=== PATIENT | male | born 1940 | race Caucasian/White ===

== ENCOUNTER → 2016-09-27 | Outpatient (CLI) | payer BC ==
[~2016-09-27] MED LIST: ATOR10TA88 PO; B-COCAP2 PO; CALC500C70 PO; CITA20TA4 PO; CMD5 PO; LOSA50TA6 PO; METO50TA17 PO; OMEP40CA PO; TRAM-10 PO
[2016-09-27 14:08] LABS: ALT/SGPT 23 U/L (12-78); AST/SGOT 16 U/L (15-37); BLOOD UREA NITROGEN 15 mg/dl (7-18); BUN/CREATININE RATIO 12.4 (10-20); CALCIUM 8.6 mg/dl (8.5-10.1); CARBON DIOXIDE 28 mmol/L (21-32); CHLORIDE 107 mmol/L (98-107); GLUCOSE 107 mg/dl (70-99); POTASSIUM 4.5 mmol/L (3.5-5.1); SODIUM 141 mmol/L (136-145)
[2016-09-27 14:13] LABS: CHOLESTEROL 124 mg/dl (0-200); CHOLESTEROL/HDL RATIO 3.6; HDL CHOLESTEROL 34 mg/dl; LDL CHOLESTEROL CALCULATED 71 mg/dl; PROSTATE SPECIFIC ANTIGEN 0.155 ng/ml (0.000-4.000); TRIGLYCERIDES 97 mg/dl (0-150); VERY LOW DENSITY LIPOPROT CALC 19 mg/dl
== END | disposition home or self-care (01) ==
LOC: C.LABMFLN 10:15
PROVIDERS: ATTEND Family Medicine
DX: E78.5 Hyperlipidemia, unspecified (principal); I48.91 Unspecified atrial fibrillation; R97.20 Elevated prostate specific antigen [PSA]; I25.10 Atherosclerotic heart disease of native coronary artery without angina pectoris; C61 Malignant neoplasm of prostate

== ENCOUNTER → 2016-11-30 | Outpatient (CLI) | payer BC ==
[~2016-11-30] MED LIST changes: +ATOR10TA82 PO; -ATOR10TA88 PO; +[UNRECOGNIZED DRUG - CODE] PO
== END | disposition home or self-care (01) ==
LOC: C.PATHSPEC 16:41
PROVIDERS: ATTEND Dermatology
DX: D04.22 Carcinoma in situ of skin of left ear and external auricular canal (principal)

== ENCOUNTER → 2016-12-21 | Day surgery (SDC) | payer BC ==
[2016-12-17 10:45] VITALS: Ht 182.9 cm; Wt 104.5 kg
[~2016-12-21] VITALS: Ht 182.9 cm; Wt 104.5 kg
[~2016-12-21] MED LIST changes: +ACETAMINOPHEN 325 MG TAB PO PRN; +ATROPINE SULFATE 0.1 MG/ML 5ML SYR IV PRN; +CEFAZOLIN 2000 MG/60 ML D5W IV SCH; +EpHEDrine SULFATE INJ 50 MG/ML AMP IV PRN; +FENTANYL CITRATE INJ 50 MCG/1 ML 2 ML VIAL IV PRN; +FENTANYL CITRATE INJ 50 MCG/1 ML 2 ML VIAL ONE; +LACTATED RINGER'S 1000ML 1,000 ML IV SCH; +LIDOCAINE/EPINEPHRINE 1% INJ 50 ML VIAL ONE; +METOCLOPRAMIDE HCL INJ 5 MG/ML 2 ML VIAL IV PRN; +MIDAZOLAM HCL 1 MG/ML 2ML VIAL ONE; +ONDANSETRON INJ 2 MG/ML 2 ML VIAL IV PRN; +OXYCODONE/ACETAMINOPHEN 5-325 TAB PO PRN; +POVIDONE-IODINE OP SOLN 30 ML BTL ONE; +PROPOFOL IV EMULSION 10 MG/ML 20 ML VIAL IV ONE; +SODIUM CHLORIDE 0.9% 1000ML 1,000 ML IV SCH
--- NOTE | 2016-12-21 11:19 | History & Physical Bridge - [place] ---
H&P Re-Evaluation Bridge Note: I have examined the patient, reviewed the History & Physical and in the interval since the performance of the History & Physical I have noted the following changes of clinical significance: INR 1.1. Has appt with Dr. Rivers later today to follow up on Efudex treatment to nose and left cheek
--- NOTE | 2016-12-21 11:39 | Discharge Instructions ---
Discharge Instructions Date of Service Dec 21, 2016. 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 Discharge Discharge Diagnosis / Problem: squamous cell carcinoma of face Discharge Goals Goal(s): Decrease discomfort Activity Recommendations Activity Limitations: per Instructions/Follow-up section ACTIVITY RECOMMENDATIONS: __Normal activities _x_No bending, lifting or straining __No driving __Driving allowed when you are off pain medications _x_Walking permitted __You should have help at home for ___ days DRESSINGS: __No dressings required _x_Keep dressings dry/in place until first office visit __Remove dressings ___ and leave dressings off __Apply ice ___ days __Remove dressings and reapply garment __Apply antibiotic ointment (Bacitracin, Neosporin, etc) to wounds 3-4 times/ day for 10 days BATHING: _x_Keep dressings dry _x_Sponge bathing permitted __Showering permitted _x_No swimming, hot tubs or soaking in a tub MEDICATIONS: Resume previous medications unless instructed otherwise by your surgeon. _x_Do not use aspirin, Motrin, Advil or Ibuprofen as these may promote bleeding. Please use Tylenol. _x_Prescription(s) provided: pain medication and antibiotics provided at your last office visit. YOU MAY RESUME COUMADIN TONIGHT OTHER INSTRUCTIONS: __Record drain output 2-3 times per day SPECIAL CARE INSTRUCTIONS: * It is normal to have a mild fever after surgery. If your temperature is higher than 101.5 degrees F, please call the office at [phone]. * Constipation is a typical side effect of pain medication. An over-the- counter stool softener will help relieve this. * Leaking around surgical drains may occur and should not cause concern. Sometimes these drains become clogged. If this happens, remove the bulb and milk the clot out of the tube, then replace the bulb. * Drainage from wounds after liposuction is normal and should be expected. Garments will become soiled. You should protect furniture and bedding. This drainage should mostly subside within 2-3 days. Leave garments in place unless instructed to remove them. * If you have unusual drainage from a wound or are concerned you have an infection or have any questions or concerns, please call the office at [phone]. FOLLOW UP VISIT: If not already scheduled, please call the office, , when you return home after surgery to schedule an appointment to be seen in _2_ days. . Current Hospital Diet Patient's current hospital diet: Discharge Diet Recommended Diet: Regular Diet Pending Studies Studies pending at discharge: yes List of pending studies: pathology Laboratory Results Lipid Panel Test 09/27/16 10:00 Range/Units Triglycerides Level 97 0-150 mg/dl Cholesterol Level 124 0-200 mg/dl HDL Cholesterol 34 mg/dl Cholesterol/HDL Ratio 3.6 LDL Cholesterol, Calculated 71 mg/dl Medical Emergencies . Who to Call and When: Medical Emergencies: If at any time you feel your situation is an emergency, please call 911 immediately. . Non-Emergent Contact Non-Emergency issues call your: Primary Care Provider, Surgeon . "Provider Documentation" section prepared by Karol Bowie. . VTE Core Measure Inpt VTE Proph given/why not?: SCD's [place] Drug Monitoring Program Search Results: no issues identified
--- NOTE | 2016-12-21 13:41 | [facility] Post Operative Brief Note ---
Immediate Operative Summary Operative Date Dec 21, 2016. Pre-Operative Diagnosis Squamous Cell Carcinoma of Skin of Face Post-Operative Diagnosis Same Procedure(s) Performed Left Upper Ear At [facility] Squamous Cell Carcinoma Excision With Frozen Section; Primary Versus Flap Versus Full Thickness Graft Closure Surgeon Dr Ray [employer] Surgeon(s) Sandra Bowie PA-C Estimated Blood Loss 20ml Findings residual SCC left ear, 9'oclock positive on frozen, all final margins negative Specimens A: Left Ear Squamous Cell (Suture 12 O'Clock) B: Left upper ear re-excision - Anesthesia local with sedation Complication(s) None Disposition Recovery Room / PACU
[2016-12-21 13:46] VITALS: TEMP 36.8
[2016-12-21 14:07] VITALS: BP 130/92; PULSE 67; O2SAT 97
--- NOTE | 2016-12-21 14:12 | Anesthesia Progress Nt - [facility] ---
Anesthesia Post Op Note Date & Time Dec 21, 2016 at 14:12 Vital Signs Pain Intensity: 0 Vital Signs Past 12 Hours Date Time Temp Pulse Resp B/P (MAP) Pulse Ox O2 Delivery O2 Flow Rate FiO2 12/21/16 14:07 67 16 130/92 (105) 97 Room Air 12/21/16 13:46 36.8 69 14 128/90 (103) 95 Room Air 12/21/16 10:48 36.6 67 16 131/94 (106) 96 Notes Mental Status: alert / awake / arousable, participated in evaluation Pt Amnestic to Procedure: Yes Nausea / Vomiting: adequately controlled Pain: adequately controlled Airway Patency, RR, SpO2: stable & adequate BP & HR: stable & adequate Hydration State: stable & adequate Anesthetic Complications: no major complications apparent
--- NOTE | 2016-12-23 21:22 | OPERATIVE REPORT ---
DATE OF OPERATION: 12/21/2016 PREOPERATIVE DIAGNOSIS: Left ear atypical squamous proliferation. POSTOPERATIVE DIAGNOSIS: Left ear squamous cell carcinoma. PROCEDURE: Excision squamous cell carcinoma, left ear with frozen section and placement of full thickness skin graft. SURGEON: Dr. Francine Ray. WRAPPER LAYER: Karol Bowie PA-C. ANESTHESIA: Local with sedation. COMPLICATIONS: None. INDICATION FOR THE PROCEDURE: The patient is a 76-year-old male referred to me by Dr. Rivers after having a biopsy of a lesion of his left upper ear which showed atypical squamous proliferation at least squamous cell carcinoma in situ. Based on the size and location, the patient was offered possibility of Mohs surgery versus excision with frozen section and elected to proceed with excision and with frozen section. BRIEF DESCRIPTION OF THE PROCEDURE: The risks, benefits and alternatives of the procedure were explained to the patient, who agreed and signed consent. He was identified and marked in the preoperative holding area. He was brought to the operating room, where he was positioned supine and placed under sedation without incident. Surgical site was prepped and draped sterilely. A time-out procedure was performed. The site had been identified by the patient, however, under loupe magnification, I was able to clinically determine margins of the tumor which initially measured 1.7 cm. I then marked a 3 mm around this to send for pathology. 1% lidocaine with epinephrine was used to anesthetize the surrounding skin. A 15 blade scalpel was used to make the incision and the lesion was removed at the level of the perichondrium, leaving perichondrium intact. A suture was marked at 12 o'clock and the lesion was sent for pathology. Initial frozen section results showed that there was residual squamous cell carcinoma as well as carcinoma in situ with residual squamous cell carcinoma at the 9 o'clock margin. The 9 o'clock margin was reexcised from 7-11 o'clock and sent for second frozen section which was deemed to be negative. At this point, the maximum excision diameter was 2.7 cm x 2 cm and therefore a full thickness skin grafting was deemed to be necessary. After achieving hemostasis with electrocautery, I marked a full thickness graft in the postauricular sulcus. I felt this would provide the best color match and texture, as the supraclavicular skin had significant amount of seborrheic keratoses and there was not adequate preauricular skin. This area was anesthetized with 1% lidocaine with epinephrine. A 15 blade scalpel made the incision and the graft was harvested with some underlying subcutaneous fat. A posterior aspect of the wound was undermined to facilitate closure. 3-0 Vicryl interrupted suture was used to approximate dermis followed by a 4-0 chromic running and interrupted suture in the postauricular sulcus. Skin graft was defatted using a curved iris scissor. After inspection of the graft was complete, the inset was begun. It was sutured into place using a mixture of 4-0 and 5-0 chromic suture. A 4-0 chromic suture was used to tack the grafts down along the helical rim as the excision extended well beyond the helical fold. An additional contouring, quilting sutures were placed using 4-0 chromic suture. Grafted edges were trimmed to facilitate inset. A 5-0 silk tie over bolster sutures were placed with interrupted 5-0 chromic sutures. Roll of Xeroform was placed within the helical rim and a sheet of Xeroform and moistened cotton was used to create a bolster dressing. Dressing was tied into place. Dry dressings and a Caldwell dressing was applied. The procedure was tolerated well. The patient was awakened and transferred to recovery in satisfactory condition. There were no complications. Final frozen section report was negative for carcinoma. I attest to the content of the Intraoperative Record and any orders documented therein. Any exception s are noted below.
== END | disposition home or self-care (01) ==
LOC: X.SURG 10:33
PROVIDERS: ATTEND Plastic Surgery
DX: C44.229 Squamous cell carcinoma of skin of left ear and external auricular canal (principal); L98.9 Disorder of the skin and subcutaneous tissue, unspecified; I48.91 Unspecified atrial fibrillation; I10 Essential (primary) hypertension; E78.5 Hyperlipidemia, unspecified; Z85.46 Personal history of malignant neoplasm of prostate; Z98.890 Other specified postprocedural states; Z79.01 Long term (current) use of anticoagulants; Z68.31 Body mass index [BMI] 31.0-31.9, adult

== ENCOUNTER → 2017-04-20 | Outpatient (CLI) | payer BC ==
[~2017-04-20] MED LIST changes: -ACETAMINOPHEN 325 MG TAB PO PRN; -ATOR10TA82 PO; +ATOR10TA88 PO; -ATROPINE SULFATE 0.1 MG/ML 5ML SYR IV PRN; -CEFAZOLIN 2000 MG/60 ML D5W IV SCH; -EpHEDrine SULFATE INJ 50 MG/ML AMP IV PRN; -FENTANYL CITRATE INJ 50 MCG/1 ML 2 ML VIAL IV PRN; -FENTANYL CITRATE INJ 50 MCG/1 ML 2 ML VIAL ONE; -LACTATED RINGER'S 1000ML 1,000 ML IV SCH; -LIDOCAINE/EPINEPHRINE 1% INJ 50 ML VIAL ONE; -METOCLOPRAMIDE HCL INJ 5 MG/ML 2 ML VIAL IV PRN; -MIDAZOLAM HCL 1 MG/ML 2ML VIAL ONE; -ONDANSETRON INJ 2 MG/ML 2 ML VIAL IV PRN; -OXYCODONE/ACETAMINOPHEN 5-325 TAB PO PRN; -POVIDONE-IODINE OP SOLN 30 ML BTL ONE; -PROPOFOL IV EMULSION 10 MG/ML 20 ML VIAL IV ONE; -SODIUM CHLORIDE 0.9% 1000ML 1,000 ML IV SCH; -[UNRECOGNIZED DRUG - CODE] PO
[2017-04-20 13:35] LABS: BLOOD UREA NITROGEN 16 mg/dl (7-18); BUN/CREATININE RATIO 14.6 (10-20); CALCIUM 8.9 mg/dl (8.5-10.1); CARBON DIOXIDE 24 mmol/L (21-32); CHLORIDE 107 mmol/L (98-107); CHOLESTEROL 133 mg/dl (0-200); GLUCOSE 107 mg/dl (70-99); POTASSIUM 3.9 mmol/L (3.5-5.1); SODIUM 141 mmol/L (136-145)
[2017-04-20 13:41] LABS: ALT/SGPT 32 U/L (12-78); AST/SGOT 24 U/L (15-37); CHOLESTEROL/HDL RATIO 2.5; HDL CHOLESTEROL 53 mg/dl; LDL CHOLESTEROL CALCULATED 61 mg/dl; PROSTATE SPECIFIC ANTIGEN 0.203 ng/ml (0.000-4.000); TRIGLYCERIDES 95 mg/dl (0-150); VERY LOW DENSITY LIPOPROT CALC 19 mg/dl
== END | disposition home or self-care (01) ==
LOC: C.LABMFLN 10:19
PROVIDERS: ATTEND Family Medicine
DX: C61 Malignant neoplasm of prostate (principal); I25.10 Atherosclerotic heart disease of native coronary artery without angina pectoris; I48.91 Unspecified atrial fibrillation; E78.5 Hyperlipidemia, unspecified

== ENCOUNTER → 2017-06-30 | Outpatient (CLI) | payer BC ==
[~2017-06-30] MED LIST changes: +ATOR10TA82 PO; -ATOR10TA88 PO; +[UNRECOGNIZED DRUG - CODE] PO
[2017-06-30 12:59] LABS: INR 1.1 (0.9-1.1)
--- NOTE | 2017-07-05 11:32 | CODING QUERY NO DIAGNOSIS ---
TREATMENT RENDERED WITHOUT A DIAGNOSIS 39 To promote full compliance with coding requirements relating to patient care, physician participation is requested in all cases of rubber goods tester water uncertainty. Please assist us with providing a diagnosis/symptom for the test(s) below: A diagnosis/symptom was not documented on your Order. A valid diagnosis/symptom is required to bill all insurances. Please remember that we are unable to code a diagnosis of rule out, probable, possible, questionable, or suspected. DOS 06/30/17 Tests that require a diagnosis: * PT/INR DIAGNOSIS: Provider Signature: Date: Thank you Imelda Peters Health Information Management Once completed, please kindly fax back to [phone] For questions please call [phone]
== END | disposition home or self-care (01) ==
LOC: C.LABMFLN 09:10
PROVIDERS: ATTEND Anesthesiology
DX: Z51.81 Encounter for therapeutic drug level monitoring (principal)

== ENCOUNTER → 2017-09-28 | Outpatient (CLI) | payer BC | END | disposition home or self-care (01) | LOC: C.PATHSPEC 18:03 | PROVIDERS: ATTEND Dermatology | DX: L82.0 Inflamed seborrheic keratosis (principal) ==

== ENCOUNTER → 2017-10-17 | Outpatient (CLI) | payer BC ==
[2017-10-17 13:55] LABS: ALBUMIN 3.9 gm/dl (3.4-5.0); ALKALINE PHOSPHATASE 59 U/L (45-117); ALT/SGPT 29 U/L (12-78); AST/SGOT 23 U/L (15-37); BLOOD UREA NITROGEN 15 mg/dl (7-18); CARBON DIOXIDE 28 mmol/L (21-32); CHOLESTEROL 129 mg/dl (0-200); GLUCOSE 110 mg/dl (70-99); POTASSIUM 4.7 mmol/L (3.5-5.1); SODIUM 139 mmol/L (136-145); TOTAL PROTEIN 7.4 gm/dl (6.4-8.2)
[2017-10-17 13:56] LABS: LDL CHOLESTEROL CALCULATED 67 mg/dl
== END | disposition home or self-care (01) ==
LOC: C.LABMFLN 09:58
PROVIDERS: ATTEND Family Medicine
DX: I10 Essential (primary) hypertension (principal); C61 Malignant neoplasm of prostate; I48.91 Unspecified atrial fibrillation; E78.5 Hyperlipidemia, unspecified

== ENCOUNTER → 2017-10-31 | Outpatient (CLI) | payer BC ==
[2017-10-31 17:53] LABS: BASO % 0.4 %; BASO ABS # 0.03 K/uL (0-0.2); EOS % 5.5 %; EOS ABS # 0.37 K/uL (0-0.5); HEMATOCRIT 45.6 % (42-52); IG# 0.02 K/uL (0.00-0.02); LYMPH % 32.1 %; LYMPH ABS # 2.15 K/uL (1.2-3.4); MEAN CELL VOLUME 91.8 fL (80-100); MEAN CORPUSCULAR HEMOGLOBIN 30.2 pg (25-34); MEAN CORPUSCULAR HGB CONC 32.9 g/dl (32-36); MEAN PLATELET VOLUME 11.4 fL (7.4-10.4); MONO % 12.7 %; MONO ABS # 0.85 K/uL (0.11-0.59); NEUT ABS # 3.28 K/uL (1.4-6.5); PLATELET COUNT 189 K/uL (130-400); RED CELL DISTRIBUTION WIDTH CV 14.4 % (11.5-14.5); RED CELL DISTRIBUTION WIDTH SD 48.6 fL (36.4-46.3)
== END | disposition home or self-care (01) ==
LOC: C.LABMFLN 13:42
PROVIDERS: ATTEND Family Medicine
DX: R53.82 Chronic fatigue, unspecified (principal)